=== PATIENT | female | born 1940 | race Caucasian/White ===

== ENCOUNTER 2021-09-11 13:03 | Outpatient (REF) | payer OTHER, SELFPAY ==
--- NOTE | ~2021-09-11 | US_ITS ---
EXAMINATION: US THYROID CLINICAL INFORMATION: Nontoxic goiter, unspecified. COMPARISON: None TECHNIQUE: Linear transducer grayscale and color Doppler examination with attention to the region of the thyroid. FINDINGS: SIZE: Measurements of the thyroid lobes and nodules are given in sagittal, anteroposterior and transverse dimensions respectively. Right Thyroid Lobe: 3.7 x 1.3 x 1.4 cm, volume 3.5 mL. Parenchyma: The gland echotexture is heterogeneous. Thyroid vascularity is increased. Left Thyroid Lobe: 3.8 x 1.5 x 1.5 cm, volume 4.5 mL. Parenchyma: The gland echotexture is heterogeneous. Thyroid vascularity is increased. Isthmus: 0.15 cm in maximum AP dimension. Estimated total number of nodules greater than or equal to 1 cm: 4. Note Specialist nodules are described as follows: 1. Location: Upper right. Size: 1.5 x 0.7 x 1.1 cm, volume 0.64 mL. Nodule characteristics: Composition: Solid (2). Echogenicity: Hypoechoic (2). Shape: Not taller than wide (0). Margins: Irregular (2). Echogenic Foci: None (0). ACR TI-RADS total points: 6 ACR TI-RADS category: 4 2. Location: Lower pole right. Size: 1.5 x 1.0 x 1.2 cm, volume 1.00 mL. Nodule characteristics: Composition: Solid/almost completely solid (2). Echogenicity: Hyperechoic (1). Shape: Not taller than wide (0). Margins: Irregular (2). Echogenic Foci: None (0). ACR TI-RADS total points: 5 ACR TI-RADS category: 4 3. Location: Upper left. Size: 1.2 x 0.7 x 1.1 cm, volume 0.51 mL. Nodule characteristics: Composition: Solid (2). Echogenicity: Isoechoic (1). Shape: Not taller than wide (0). Margins: Irregular (2). Echogenic Foci: Macrocalcifications (1). ACR TI-RADS total points: 6 ACR TI-RADS category: 4 4. Location: Mid lower left. Size: 1.8 x 1.7 x 1.3 cm, volume 2.02 mL. Nodule characteristics: Composition: Solid/almost completely solid (2). Echogenicity: Isoechoic (1). Shape: Taller than wide (3). Margins: Irregular (2). Echogenic Foci: Punctate echogenic foci (3). ACR TI-RADS total points: 11 ACR TI-RADS category: 5 5. Location: Left lower pole. Size: 0.7 x 0.4 x 0.7 cm, volume 0.10 mL. Nodule characteristics: Composition: Solid/almost completely solid (2). Echogenicity: Hypoechoic (2). Shape: Not taller than wide (0). Margins: Smooth (0). Echogenic Foci: None (0). ACR TI-RADS total points: 4 ACR TI-RADS category: 4 Significant change in size (>/= 20% in 2 dimensions and minimal increase of 2 mm or 50% or greater increase in volume): Change in features: Change in ACR TI-RADS risk category: NODES: There is an enlarged right level 2 lymph node. This measures 2.2 x 0.4 x 1.2 cm in sagittal AP and transverse dimension. The mastoid normal hilar flow. US/US thyroid IMPRESSION: Heterogeneous hypervascular thyroid gland with multiple bilateral thyroid nodules. According to TI RADS criteria, fine needle aspiration of the nodule in the mid /lower left lobe and right upper lobe and continued ultrasound follow-up recommended. Enlarged right level 2 cervical lymph node. ACR TI-RADS RECOMMENDATION REFERENCE: Ultrasound-guided fine-needle aspiration, followup ultrasound, no further follow up. * TR1 (0 point) and TR 2 (2 points): No FNA or follow up * TR3 (3 points): FNA if more than or equal to 2.5 cm in maximum dimension, followup ultrasound in 1, 3 and 5 years if 1.5 to 2.4 cm in maximum dimension. * TR4 (4-6 points): FNA if more than or equal to 1.5 cm in maximum dimension, followup ultrasound in 1, 2, 3 and 5 years if 1 to 1.4 cm in maximum dimension. * TR5 (more than or equal to 7 points): FNA if more than or equal to 1 cm in maximum dimension, followup ultrasound every year for 5 years if 0.5 to 0.9 cm in maximum dimension. * TR3, TR4 or TR5 nodules that are below the size threshold for follow up receive no follow up.
== END 2021-09-11 13:04 | disposition home or self-care (01) ==
LOC: HO.HMGCX 13:03
PROVIDERS: PCP Internal Medicine; Visit Provider Internal Medicine
DX: E04.9 Nontoxic goiter, unspecified (principal)
CPT/HCPCS: 76536

== ENCOUNTER 2021-11-08 10:49 | Outpatient (REF) | payer OTHER, SELFPAY ==
[2021-11-08 15:33] LABS: Appearance Urine HAZY; Color Urine YELLOW; Glucose Urine UA NEG (NEG); Leukocyte Esterase Urine TRACE (NEG); Nitrite Urine NEG (NEG); PH 5.5 (5.0-8.0); Specific Gravity - Urine 1.025 (1.005-1.025); Urine Blood TRACE (NEG); Urine Ketones NEG (NEG); Urine Protein NEG (NEG-TRACE)
[2021-11-08 15:43] LABS: Alanine Aminotransferase 15 U/L (0-31); Albumin Level 4.2 g/dL (3.5-5.0); Alkaline Phosphatase 48 U/L (39-117); Anion Gap 10 (12-20); Aspartate Amino Transferase 18 U/L (5-31); Bilirubin Total 0.6 mg/dL (0.0-1.0); Blood Urea Nitrogen 19 mg/dL (9-16); Calcium 9.3 mg/dL (8.4-10.2); Carbon Dioxide 28 mmol/L (22-29); Chloride 105 mmol/L (96-108); Cholesterol 199 mg/dL; Estimated Glomerular Filt Rate 60; Glucose Fasting 118 mg/dL (60-99); HDL Cholesterol 37 mg/dL; LDL Cholesterol Calculated 133 mg/dl; Sodium 139 mmol/L (135-145); Total Protein 6.8 g/dL (6.5-8.0); Triglycerides 146 mg/dL
[2021-11-08 15:48] LABS: Estimated Average Glucose 108 mg/dL; Hemoglobin A1c % 5.4 %
[2021-11-08 15:58] LABS: Creatinine Urine 99.03 mg/dL
[2021-11-08 15:59] LABS: Bacteria Urine 3+ /LPF; RBC Urine 0-2 /HPF (0); Squamous Epithelial Cell Urine 2+ /LPF
[2021-11-08 16:05] LABS: TSH reflex Free T4 2.06 uIU/mL (0.32-4.0)
== END 2021-11-08 10:50 | disposition home or self-care (01) ==
LOC: HO.HMGCLDS 10:49
PROVIDERS: PCP Internal Medicine; Visit Provider Internal Medicine
DX: E04.1 Nontoxic single thyroid nodule (principal); E04.9 Nontoxic goiter, unspecified; E11.9 Type 2 diabetes mellitus without complications; I10 Essential (primary) hypertension
CPT/HCPCS: 36415; 80053; 80061; 81001; 82043; 83036; 84443

== ENCOUNTER 2022-10-09 14:57 | Outpatient (REF) | payer OTHER, SELFPAY ==
[2022-10-09 16:42] LABS: MANUAL DIFF FLAG NO
[2022-10-09 17:33] LABS: Basophils Percent Auto 0.6 % (0-2); Eosinophils Absolute Auto 0.3 X10*3/uL (0.0-0.4); Eosinophils Percent Auto 4.3 % (0-4); Hematocrit 42.1 % (37.0-47.0); Hemoglobin 14.1 g/dl (12.0-16.0); Imm Gran Abs Auto 0.03 X10*3/uL (0.00-0.03); Imm Gran Pct Auto 0.5 % (0.0-0.4); Lymphocytes Absolute Auto 1.8 X10*3/uL (1.2-4.9); Lymphocytes Percent Auto 27.9 % (20-40); Mean Corpuscular HGB Conc 33.5 g/dl (31.0-35.0); Mean Corpuscular Hemoglobin 29.6 pg (27.0-33.0); Mean Corpuscular Volume 88.4 fL (80.0-98.0); Mean Platelet Volume 10.8 fL (9.4-12.3); Monocytes Absolute Auto 0.6 X10*3/uL (0.1-1.2); Monocytes Percent Auto 9.1 % (2-11); Neutrophils Absolute Auto 3.8 x10*3/uL (2.0-8.3); Neutrophils Percent Auto 57.6 % (45-73); Platelet Count 242 X10*3/uL (160-400); Red Blood Count 4.76 X10*6/uL (4.20-5.50); Red Cell Distribution Width 12.6 % (11.0-16.0); White Blood Count 6.6 X10*3/uL (4.8-10.8)
[2022-10-09 17:41] LABS: Estimated Average Glucose 108 mg/dL; Hemoglobin A1c % 5.4 %
[2022-10-09 17:55] LABS: Alanine Aminotransferase 12 U/L (0-31); Albumin Level 4.3 g/dL (3.5-5.0); Alkaline Phosphatase 49 U/L (39-117); Anion Gap 11 (12-20); Aspartate Amino Transferase 18 U/L (5-31); Bilirubin Total 0.5 mg/dL (0.0-1.0); Blood Urea Nitrogen 21 mg/dL (9-16); Calcium 9.6 mg/dL (8.4-10.2); Carbon Dioxide 29 mmol/L (22-29); Chloride 104 mmol/L (96-108); Estimated Glomerular Filt Rate > 60; Glucose Random 108 mg/dL (60-115); Potassium 4.2 mmol/L (3.3-5.1); Sodium 140 mmol/L (135-145); Total Protein 6.8 g/dL (6.5-8.0)
[2022-10-09 18:21] LABS: Folate 18.2 ng/mL (> or = 4.0); TSH reflex Free T4 1.73 uIU/mL (0.32-4.0); Vitamin B12 666 pg/mL (200-900)
== END 2022-10-09 14:58 | disposition home or self-care (01) ==
LOC: HO.HMGCLDS 14:57
PROVIDERS: PCP Internal Medicine; Visit Provider Internal Medicine
DX: E11.9 Type 2 diabetes mellitus without complications (principal); I10 Essential (primary) hypertension; R20.2 Paresthesia of skin
CPT/HCPCS: 36415; 80053; 82607; 82746; 83036; 84443; 85025

== ENCOUNTER 2022-10-24 13:55 | Outpatient (REF) | payer OTHER, SELFPAY ==
--- NOTE | ~2022-10-24 | US_ITS ---
EXAMINATION: US THYROID CLINICAL INFORMATION: Nontoxic single thyroid nodule. COMPARISON: Ultrasound soft tissue head/neck thyroid dated 09/11/2021. TECHNIQUE: Linear transducer grayscale and color Doppler examination with attention to the region of the thyroid. FINDINGS: SIZE: Measurements of the thyroid lobes and nodules are given in sagittal, anteroposterior and transverse dimensions respectively. Right Thyroid Lobe: 3.5 x 1.5 x 1.3 cm, volume 3.6 mL. Previously 3.7 x 1.3 x 1.4 cm, volume 3.5 mL. Parenchyma: The gland echotexture is heterogeneous. Thyroid vascularity is increased. Left Thyroid Lobe: 3.3 x 1.5 x 1.7 cm, volume 4.4 mL. Previously 3.8 x 1.5 x 1.5 cm, volume 4.5 mL. Parenchyma: The gland echotexture is heterogeneous. Thyroid vascularity is increased. Isthmus: 0.1 cm in maximum AP dimension. Previously 0.2 cm. Estimated total number of nodules greater than or equal to 1 cm: 4. 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 Location: Right superior. Size: 1.4 x 0.8 x 0.9 cm, volume 0.56 mL. Previously: 1.5 x 0.7 x 1.1 cm, volume 0.64 mL. Nodule characteristics: Composition: Solid (2). Echogenicity: Hypoechoic (2). Shape: Not taller than wide (0). Margins: Irregular (2). Echogenic Foci: None (0). ACR TI-RADS total points: 6 Previous: 6 ACR TI-RADS category: 4 Previous: 4 Significant change in size (>/= 20% in 2 dimensions and minimal increase of 2 mm or 50% or greater increase in volume): Change in features: Change in ACR TI-RADS risk category: 2. Location: Right inferior. Size: 1.5 x 1.1 x 1.1 cm, volume 0.93 mL. Previously: 1.5 x 1.0 x 1.2 cm, volume 1.00 mL. Nodule characteristics: Composition: Solid/almost completely solid (2). Echogenicity: Hyperechoic (1). Shape: Not taller than wide (0). Margins: Irregular (2). Echogenic Foci: None (0). ACR TI-RADS total points: 5 Previous: 5 ACR TI-RADS category: 4 Previous: 4 Significant change in size (>/= 20% in 2 dimensions and minimal increase of 2 mm or 50% or greater increase in volume): Change in features: Change in ACR TI-RADS risk category: 3. Location: Left superior. Size: 1.2 x 0.6 x 0.9 cm, volume 0.35 mL. Previously: 1.2 x 0.7 x 1.1 cm, volume 0.51 mL. Nodule characteristics: Composition: Solid (2). Echogenicity: Isoechoic (1). Shape: Not taller than wide (0). Margins: Irregular (2). Echogenic Foci: Macrocalcifications (1). ACR TI-RADS total points: 6 Previous: 6 ACR TI-RADS category: 4 Previous: 4 Significant change in size (>/= 20% in 2 dimensions and minimal increase of 2 mm or 50% or greater increase in volume): Change in features: Change in ACR TI-RADS risk category: 4. Location: Left mid. Size: 1.7 x 1.6 x 1.3 cm, volume 1.79 mL. Previously: 1.8 x 1.7 x 1.3 cm, volume 2.02 mL. Nodule characteristics: Composition: Mixed cystic and solid (1). Echogenicity: Hypoechoic (2). Shape: Taller than wide (3). Margins: Irregular (2). Echogenic Foci: Punctate echogenic foci (3). ACR TI-RADS total points: 11 Previous: 11 ACR TI-RADS category: 5 Previous: 5 Significant change in size (>/= 20% in 2 dimensions and minimal increase of 2 mm or 50% or greater increase in volume): Change in features: Change in ACR TI-RADS risk category: 5. Location: Left superior/mid. Size: 0.9 x 0.7 x 0.6 cm, volume 0.22 mL. Previously: 0.7 x 0.4 x 0.7 cm, volume 0.10 mL. Nodule characteristics: Composition: Solid (2). Echogenicity: Isoechoic (1). Shape: Taller than wide (3). Margins: Smooth (0). Echogenic Foci: None (0). ACR TI-RADS total points: 6 Previous: 4 ACR TI-RADS category: 4 Previous: 4 Significant change in size (>/= 20% in 2 dimensions and minimal increase of 2 mm or 50% or greater increase in volume): Change in features: Change in ACR TI-RADS risk category: NODES: No lymphadenopathy is seen in the tissue surrounding the thyroid gland. US/US thyroid IMPRESSION: Multiple bilateral nodules are overall similar. Once again biopsy for the right upper pole and left lower pole nodule again is recommended. Continue surveillance imaging for the other nodules is indicated. ACR TI-RADS RECOMMENDATION REFERENCE: Ultrasound-guided fine-needle aspiration, followup ultrasound, no further follow up. * TR1 (0 point) and TR2 (2 points): No FNA or follow up * TR3 (3 points): FNA if more than or equal to 2.5 cm in maximum dimension, followup ultrasound in 1, 3 and 5 years if 1.5 to 2.4 cm in maximum dimension. * TR4 (4-6 points): FNA if more than or equal to 1.5 cm in maximum dimension, followup ultrasound in 1, 2, 3 and 5 years if 1 to 1.4 cm in maximum dimension. * TR5 (more than or equal to 7 points): FNA if more than or equal to 1 cm in maximum dimension, followup ultrasound every year for 5 years if 0.5 to 0.9 cm in maximum dimension. * TR3, TR4 or TR5 nodules that are below the size threshold for follow up receive no follow up.
== END 2022-10-24 13:56 | disposition home or self-care (01) ==
LOC: HO.HMGCX 13:55
PROVIDERS: PCP Internal Medicine; Visit Provider Internal Medicine
DX: E04.1 Nontoxic single thyroid nodule (principal)
CPT/HCPCS: 76536

== ENCOUNTER 2023-05-14 12:50 | Outpatient (AMB) | payer OTHER, SELFPAY ==
[2023-05-14 12:53] VITALS: BP 120/62; PULSE 80; O2SAT 98; BMI 23.8
--- NOTE | 2023-05-14 12:53 | A.OFFPC_ITS ---
Vital Signs 05/14/23 12:53 Height 4 ft 11 in Weight 118 lb BMI 23.8 BP 120/62 Blood Pressure Location Rt brachial Position Sitting Pulse 80 Pulse Source Pulse Oximeter Pulse Oximetry (%) 98 Intake Visit Reasons: Med review Intake Note: pt is here for f/u medication review Accompanied by: Self / Same As Patient Allergies No Known Allergies Allergy (Verified 05/14/23 12:53) Medication List - Last Reconciled 05/14/23 by Cathy Astudillo MD blood sugar diagnostic (FreeStyle Lite Strips) Test blood sugar once a day latanoprost 0.005% 1 drp ophthalmic (eye) BEDTIME levothyroxine 25 mcg PO DAILY lisinopril 2.5 mg PO DAILY unzucsohhanm-kragutms-lmupat 1 tab PO DAILY sertraline 12.5 mg (1/2 x 25 mg) PO DAILY Tobacco use date assessed: 05/14/23 Fall risk assessment: No Falls in past year Last assessed Fall Risk: 05/14/23 Dental Screening Dental Screen Date: 05/14/23 Did you have a dental visit in the last 12 months?: Yes Did you have a dental problem in the last 6 months where you did not have access to dental care?: No Was dental information given to patient?: Patient has dentist HPI Med review HPI Details Pt presents for f/u HTN, hypothyroidism stable on current medications patient has been less physically active feeling general tired complains of both like pain and weakness. She lives with her son who took over most of the house work. Patient denies PND orthopnea palpitations chest pain, change in appetite, weight or bowel habits. [facility]LY [facility] Medical History (Updated 05/14/23 @ 13:38 by Cathy Astudillo MD) Thyroid nodule Anxiety Varicose veins of both lower extremities DM type 2 (diabetes mellitus, type 2) Goiter HTN (hypertension) Family History Father No problems noted. Mother Diabetes Stroke Heart attack Brother Substance use disorder Social History Housing: House Patient Tobacco Use Status: Never used Tobacco e-Cigarette/Vaping Use: Never Used Current occupational status: retired Cognitive needs: No Hearing needs: No Vision needs: No Questionnaire Thrive Questionnaire Date Thrive assessed: 05/14/23 I am a: Patient What is your living situation today?: I have a steady place to live Within the past 12 months, did the food you bought not last and you didn't have the money to get more?: Never true Within the past 12 months, did you worry whether your food would run out before you got money to buy more?: Never true Do you have trouble paying for medicines?: No Do you have trouble getting transportation to medical appointments?: No Do you have trouble paying your heating and electricity bill?: No Do you have trouble taking care of your child, family member or friend?: No Do you have trouble with day-to-day activities such as bathing, preparing meals, shopping, managing finances, etc.?: No Are you currently unemployed and looking for a job?: No Are you interested in more education?: No Please select the resources that you would like help with: None Currently or been in a relationship where the following occur: no concerns reported ABHIJIT-7 AMB Questionnaire ABHIJIT-7 Date ABHIJIT - 7 assessed: 08/22/21 Source: Developed by Drs. Enmanuel Quintanilla, Aminta Apple, Dada Gillespie and colleagues, with an educational shelby from [employer]. Review of Systems Const All systems reviewed & are unremarkable except as noted in HPI and below Reports no additional complaints Eyes Reports no additional complaints ENT Reports no additional complaints Card Reports no additional complaints Resp Reports no additional complaints GI Reports no additional complaints Reports no additional complaints Physical exam (Primary Care) Vital Signs: Last Vital Signs Pulse 80 05/14/23 12:53 BP 120/62 05/14/23 12:53 Pulse Ox 98 05/14/23 12:53 BMI result Body Mass Index 23.8 Tobacco/Smoking Status: Tobacco use Status Tobacco use date assessed 05/14/23 05/14/23 12:54 Patient Tobacco Use Status Never used Tobacco 05/14/23 12:54 e-Cigarette/Vaping Use Never Used 05/14/23 12:54 Thrive Assessment: Date of Thrive Assessment Date Thrive assessed 05/14/23 05/14/23 12:59 Currently or been in a relationship where the following occur: no concerns reported Const General: no acute distress HENMT Head: Yes normal to inspection Face and sinus: Yes normal facial exam Neck Neck: Yes supple Resp Effort & Inspection: normal respiratory effort Auscultation: clear to auscultation bilaterally Cardio Rhythm: regular rhythm Heart sounds: S1 normal heart sound present and S2 normal heart sound present GI Inspection: Yes normal to inspection Palpation (GI): Soft to palpation Assessment and Plan Assessment & Plan (1) Anxiety: Code(s): F41.9 - Anxiety disorder, unspecified Plan: Stress management discussed with the patient she declined taking sertraline (2) HTN (hypertension): Code(s): I10 - Essential (primary) hypertension Plan: Continue lisinopril (3) DM type 2 (diabetes mellitus, type 2): Comment: diet controlled Code(s): E11.9 - Type 2 diabetes mellitus without complications Plan: Continue ADA diet follow-up in 6 months with a fasting labs before including A1c (4) Thyroid nodule: Comment: multiple, US 10/14. referred to Endo but did not go for appointment Code(s): E04.1 - Nontoxic single thyroid nodule Plan: Patient declined referral to endocrinology (5) Hypothyroid: Code(s): E03.9 - Hypothyroidism, unspecified Orders: Orders Comprehensive [place]. Panel Fast 6 Months E03.9 - Hypothyroidism, unspecified, E04.1 - Nontoxic single thyroid nodule, E11.9 - Type 2 diabetes mellitus without complications, I10 - Essential (primary) hypertension TSH reflex Free T4 6 Months E03.9 - Hypothyroidism, unspecified, E04.1 - Nontoxic single thyroid nodule, E11.9 - Type 2 diabetes mellitus without complic ations, I10 - Essential (primary) hypertension Lipid Panel 6 Months E03.9 - Hypothyroidism, unspecified, E04.1 - Nontoxic single thyroid nodule, E11.9 - Type 2 diabetes mellitus without complications, I10 - Essential (primary) hypertension Hemoglobin A1c 6 Months E03.9 - Hypothyroidism, unspecified, E04.1 - Nontoxic single thyroid nodule, E11.9 - Type 2 diabetes mellitus without complications, I10 - Essential (primary) hypertension Complete Blood Count Auto Diff 6 Months E03.9 - Hypothyroidism, unspecified, E04.1 - Nontoxic single thyroid nodule, E11.9 - Type 2 diabetes mellitus without complications, I10 - Essential (primary) hypertension Coding Level of Care Code Est Pt Level 4 (17782) Diagnoses Anxiety F41.9 HTN (hypertension) I10 DM type 2 (diabetes mellitus, type 2) E11.9 Thyroid nodule E04.1 Hypothyroid E03.9
== END 2023-05-14 13:38 | disposition home or self-care (01) ==
PROVIDERS: PCP Internal Medicine; Visit Provider Internal Medicine
DX: F41.9 Anxiety disorder, unspecified (principal); I10 Essential (primary) hypertension; E11.9 Type 2 diabetes mellitus without complications; E04.1 Nontoxic single thyroid nodule; E03.9 Hypothyroidism, unspecified
CPT/HCPCS: 99214

== ENCOUNTER 2023-10-01 13:47 | Outpatient (AMB) | payer OTHER, SELFPAY ==
[2023-10-01 14:06] VITALS: BP 122/68; PULSE 80; O2SAT 97; BMI 23.9
--- NOTE | 2023-10-01 14:06 | MHC.PC.OV ---
Vital Signs 10/01/23 14:06 Height 4 ft 11 in Weight 118 lb 4 oz BMI 23.9 BP 122/68 Blood Pressure Location Lt brachial Position Sitting Pulse 80 Pulse Source Pulse Oximeter Pulse Oximetry (%) 97 Intake Visit Reasons: 6 Month F/U Allergies No Known Allergies Allergy (Verified 10/01/23 14:08) Medication List - Last Reconciled 10/01/23 by Cathy Astudillo MD blood sugar diagnostic (FreeStyle Lite Strips) Test blood sugar once a day latanoprost 0.005% 1 drp ophthalmic (eye) BEDTIME levothyroxine 25 mcg PO DAILY lisinopril 2.5 mg PO DAILY ddtkmjdrimom-ztxtxxut-hzubfe 1 tab PO DAILY sertraline 12.5 mg (1/2 x 25 mg) PO DAILY Tobacco use date assessed: 10/01/23 Fall risk assessment: No Falls in past year Last assessed Fall Risk: 10/01/23 Dental Screening Dental Screen Date: 10/01/23 Did you have a dental visit in the last 12 months?: Yes Did you have a dental problem in the last 6 months where you did not have access to dental care?: No Was dental information given to patient?: Patient has dentist HPI 6 Month F/U HPI Details Patient presents complaining of feeling generally tired having low energy and insomnia. She denies depression and change in appetite. Patient reports dyspnea on exertion but denies PND orthopnea palpitations or chest pain. She complains of night sweats and occasionally increase blood pressure at night up to 150 over 70. ON LICENSE OF [facility] Medical History Thyroid nodule Anxiety Varicose veins of both lower extremities DM type 2 (diabetes mellitus, type 2) Goiter HTN (hypertension) Family History Father No problems noted. Mother Diabetes Stroke Heart attack Brother Substance use disorder Social History Housing: House Patient Tobacco Use Status: Never used Tobacco e-Cigarette/Vaping Use: Never Used service: No Current occupational status: retired Cognitive needs: No Hearing needs: No Vision needs: No Questionnaire PHQ-9 Over the last 2 weeks, how often have you been bothered by any of the following problems? 1. Little interest or pleasure in doing things: not at all 2. Feeling down, depressed, or hopeless: several days 3. Trouble falling or staying asleep, or sleeping too much: not at all 4. Feeling tired or having little energy: nearly every day 5. Poor appetite or overeating: several days 6. Feeling bad about yourself - or that you are a failure or have let yourself or your family down: not at all 7. Trouble concentrating on things, such as reading the newspaper or watching television: not at all 8. Moving or speaking so slowly that other people could have noticed. Or the opposite - being so fidgety or restless that you have been moving around a lot more than usual: not at all 9. Thoughts that you would be better off or of hurting yourself in some way: not at all Total score: 5 Depression Screening Interpretation: Negative Depression Screening Done: Yes Source: Developed by Drs. Enmanuel Quintanilla, Aminta Apple, Dada Gillespie and colleagues, with an educational shelby from [employer]. Thrive Questionnaire Date Thrive assessed: 10/01/23 I am a: Patient What is your living situation today?: I have a steady place to live Within the past 12 months, did the food you bought not last and you didn't have the money to get more?: Never true Within the past 12 months, did you worry whether your food would run out before you got money to buy more?: Never true Do you have trouble paying for medicines?: No Do you have trouble getting transportation to medical appointments?: No Do you have trouble paying your heating and electricity bill?: No Do you have trouble taking care of your child, family member or friend?: No Do you have trouble with day-to-day activities such as bathing, preparing meals, shopping, managing finances, etc.?: No Are you currently unemployed and looking for a job?: No Are you interested in more education?: No Please select the resources that you would like help with: None THRIVE Score: 0 AUDIT C Alcohol Use Questionnaire (AUDIT-C) 1. How often do you have a drink containing alcohol?: Never 3. How often do you have six or more drinks on one occasion?: Never Total Score: 0 Score Reviewed/Action Taken: Yes ABHIJIT-7 AMB Questionnaire ABHIJIT-7 Date ABHIJIT - 7 assessed: 10/01/23 Feeling nervous, anxious, or on edge: 0 = Not at all Not being able to stop or control worryin = Not at all Worrying too much about different things: 0 = Not at all Trouble relaxin = Not at all Being so restless that it is hard to sit still: 0 = Not at all Becoming easily annoyed or irritable: 0 = Not at all Feeling afraid as if something awful might happen: 0 = Not at all Total ABHIJIT-7 score (0-4 normal; 5-9 mild; 10-14 moderate; 15-21 severe): 0 Source: Developed by Drs. Enmanuel Quintanilla, Aminta Apple, Dada Gillespie and colleagues, with an educational shelby from [employer]. Review of Systems Const All systems reviewed & are unremarkable except as noted in HPI and below Reports no additional complaints Eyes Reports no additional complaints ENT Reports no additional complaints Card Reports no additional complaints Resp Reports no additional complaints GI Reports no additional complaints Reports no additional complaints Physical exam (Primary Care) Vital Signs: Last Vital Signs Pulse 80 10/01/23 14:06 BP 122/68 10/01/23 14:06 Pulse Ox 97 10/01/23 14:06 BMI result Body Mass Index 23.9 Tobacco/Smoking Status: Tobacco use Status Tobacco use date assessed 10/01/23 10/01/23 14:11 Patient Tobacco Use Status Never used Tobacco 10/01/23 14:11 e-Cigarette/Vaping Use Never Used 10/01/23 14:11 Depression Screening Interpretation: Negative Thrive Assessment: Date of Thrive Assessment Date Thrive assessed 05/14/23 10/01/23 14:11 Const General: no acute distress HENMT Head: Yes normal to inspection General nose exam: Normal external nose present Face and sinus: Yes normal facial exam Throat: Yes posterior oropharynx normal Neck Neck: Yes supple Resp Effort & Inspection: normal respiratory effort Auscultation: clear to auscultation bilaterally Cardio Rhythm: regular rhythm Heart sounds: S1 normal heart sound present and S2 normal heart sound present GI Inspection: Yes normal to inspection Palpation (GI): Soft to palpation Percussion: Yes normal to percussion Auscultation: normal bowel sounds Assessment and Plan Assessment & Plan (1) HTN (hypertension): Code(s): I10 - Essential (primary) hypertension Plan: Continue Lisinopril (2) DM type 2 (diabetes mellitus, type 2): Comment: diet controlled Code(s): E11.9 - Type 2 diabetes mellitus without complications Plan: Continue ADA diet, check A1c (3) Hypothyroid: Comment: Multiple goiter, patient declined referral to [employer] service technician for biopsy of a large nodule Code(s): E03.9 - Hypothyroidism, unspecified Plan: Check TSH level (4) Cough: Comment: Chronic possible to SAM inhibitor but patient declined changing the medication Code(s): R05.9 - Cough, unspecified Plan: Check chest x-ray (5) Fatigue: Code(s): R53.83 - Other fatigue Plan: For general fatigue obtain blood work including CBC comprehensive panel and CRP level. EKG showed normal sinus rhythm no ST-T changes. (6) ALVARADO (dyspnea on exertion): Code(s): R06.09 - Other forms of dyspnea Plan: Obtain echocardiogram to evaluate for EF, segmental wall motion abnormalities Orders: Orders Comprehensive Met. Panel Today E03.9 - Hypothyroidism, unspecified, E11.9 - Type 2 diabetes mellitus without complications, I10 - Essential (primary) hypertension TSH reflex Free T4 Today E03.9 - Hypothyroidism, unspecified, E11.9 - Type 2 diabetes mellitus without complications, I10 - Essential (primary) hypertension Hemoglobin A1c Today E11.9 - Type 2 diabetes mellitus without complications CA echo transthoracic complete Today R06.09 - Other forms of dyspnea, R53.83 - Other fatigue Complete Blood Count Auto Diff Today E03.9 - Hypothyroidism, unspecified, E11.9 - Type 2 diabetes mellitus without complications, I10 - Essential (primary) hypertension IRON PROFILE Today E03.9 - Hypothyroidism, unspecified, E11.9 - Type 2 diabetes mellitus without complications, I10 - Essential (primary) hypertension XR chest 1V Today R05.9 - Cough, unspecified C Reactive Protein Today R05.9 - Cough, unspecified, R53.83 - Other fatigue Medications: Discontinued sertraline Discontinued Reason: Doctor's Order 12.5 mg (1/2 x 25 mg) PO DAILY 45 tabs 1RF Coding Level of Care Code Est Pt Level 4 (80080) Diagnoses HTN (hypertension) I10 DM type 2 (diabetes mellitus, type 2) E11.9 Hypothyroid E03.9 Cough R05.9 Fatigue R53.83 ALVARADO (dyspnea on exertion) R06.09
== END 2023-10-01 15:02 | disposition home or self-care (01) ==
PROVIDERS: PCP Internal Medicine; Visit Provider Internal Medicine
DX: I10 Essential (primary) hypertension (principal); E11.9 Type 2 diabetes mellitus without complications; E03.9 Hypothyroidism, unspecified; R05.9 Cough, unspecified; R53.83 Other fatigue; R06.09 Other forms of dyspnea
CPT/HCPCS: 99214

== ENCOUNTER 2023-10-01 14:55 | Outpatient (REF) | payer OTHER, SELFPAY ==
--- NOTE | ~2023-10-01 | XR_ITS ---
EXAMINATION: XR CHEST CLINICAL INFORMATION: Cough unspecified. COMPARISON: None available. TECHNIQUE: Frontal view of the chest was obtained. FINDINGS: The lungs are well-inflated. Mild biapical pleural thickening. There is no gross pneumothorax. Heart size is normal. Mild dextroscoliosis of the thoracolumbar spine with degenerative changes. Surgical clips in the upper abdomen. No pleural effusion. Minimal left basilar opacities likely represent atelectasis/scar. XR/XR chest 1V IMPRESSION: Minimal left basilar opacities likely represent atelectasis/scar.
[2023-10-01 16:15] LABS: MANUAL DIFF FLAG NO
[2023-10-01 16:24] LABS: Basophils Percent Auto 0.7 % (0-2); Eosinophils Absolute Auto 0.2 X10*3/uL (0.0-0.4); Eosinophils Percent Auto 3.5 % (0-4); Hemoglobin 14.4 g/dl (12.0-16.0); Imm Gran Abs Auto 0.02 X10*3/uL (0.00-0.03); Imm Gran Pct Auto 0.3 % (0.0-0.4); Lymphocytes Percent Auto 32.3 % (20-40); Mean Corpuscular HGB Conc 33.5 g/dl (31.0-35.0); Mean Corpuscular Hemoglobin 29.3 pg (27.0-33.0); Mean Corpuscular Volume 87.4 fL (80.0-98.0); Mean Platelet Volume 10.6 fL (9.4-12.3); Monocytes Absolute Auto 0.5 X10*3/uL (0.1-1.2); Monocytes Percent Auto 8.2 % (2-11); Neutrophils Absolute Auto 3.3 x10*3/uL (2.0-8.3); Platelet Count 252 X10*3/uL (160-400); Red Blood Count 4.92 X10*6/uL (4.20-5.50); Red Cell Distribution Width 12.6 % (11.0-16.0); White Blood Count 6.1 X10*3/uL (4.8-10.8)
[2023-10-01 16:29] LABS: Estimated Average Glucose 111 mg/dL; Hemoglobin A1c % 5.5 % (<6.0)
[2023-10-01 18:45] LABS: Alanine Aminotransferase 12 U/L (0-31); Albumin Level 4.2 g/dL (3.5-5.0); Alkaline Phosphatase 44 U/L (39-117); Anion Gap 13 (12-20); Aspartate Amino Transferase 17 U/L (5-31); Bilirubin Total 0.4 mg/dL (0.0-1.0); Blood Urea Nitrogen 16 mg/dL (9-16); C Reactive Protein < 0.10 mg/dL (< or = 0.50); Calcium 9.5 mg/dL (8.4-10.2); Carbon Dioxide 26 mmol/L (22-29); Chloride 105 mmol/L (96-108); Estimated Glomerular Filt Rate > 60; Glucose Random 80 mg/dL (60-115); Iron 58 mcg/dL (30-160); Percent Iron Saturation 21 % (15-50); Potassium 3.9 mmol/L (3.3-5.1); Sodium 140 mmol/L (135-145); Total Iron Binding Capacity 278 mcg/dL (228-428); Total Protein 7.1 g/dL (6.5-8.0); Unsaturated Iron Binding 220 ug/dL
[2023-10-01 18:54] LABS: TSH reflex Free T4 2.27 uIU/mL (0.32-4.0)
== END 2023-10-01 14:56 | disposition home or self-care (01) ==
LOC: HO.HMGCX 14:55
PROVIDERS: PCP Internal Medicine; Visit Provider Internal Medicine
DX: E11.9 Type 2 diabetes mellitus without complications (principal); R05.9 Cough, unspecified; I10 Essential (primary) hypertension; E03.9 Hypothyroidism, unspecified; R53.83 Other fatigue
CPT/HCPCS: 36415; 71045; 80053; 83036; 83540; 84443; 85025; 86140

== ENCOUNTER 2024-03-31 13:46 | Outpatient (REF) | payer OTHER, SELFPAY ==
--- NOTE | ~2024-03-31 | XR_ITS ---
EXAMINATION: XR KNEE, LEFT CLINICAL INFORMATION: Left knee pain COMPARISON: None available. TECHNIQUE: Four views of the left knee. FINDINGS: Tricompartmental osteoarthritis, moderate in the medial compartment. No joint effusion. No acute fractures or dislocations. Soft tissue structures within normal limits. XR/XR knee LT 2V IMPRESSION: Tricompartmental osteoarthritis, worst within the medial compartment. Electronically signed by: Neptali Walker DO 04/01/2024 09:39 AM MAHNA[facility]
--- NOTE | ~2024-03-31 | XR_ITS ---
EXAMINATION: XR KNEE AP STANDING CLINICAL INFORMATION: Pain in the right knee COMPARISON: None available. TECHNIQUE: AP bilateral standing view of the knees was obtained. FINDINGS: Single AP view of bilateral knees demonstrate at least bicompartmental osteoarthritis. On the right, there is moderate medial compartment osteoarthritis. On the left, there is moderate to severe medial compartmental osteoarthritis. No acute fractures or dislocations. XR/XR knee standing BI IMPRESSION: Predominantly medial compartmental bilateral osteoarthritis. Electronically signed by: Neptali Walker DO 04/01/2024 09:56 AM MAHNAZ
== END 2024-03-31 13:47 | disposition home or self-care (01) ==
LOC: HO.HMGCX 13:46
PROVIDERS: PCP Internal Medicine; Visit Provider Internal Medicine
DX: M25.561 Pain in right knee (principal); M25.562 Pain in left knee; E03.9 Hypothyroidism, unspecified; I10 Essential (primary) hypertension
CPT/HCPCS: 73560; 73565; 96127; 99212

== ENCOUNTER 2024-03-31 13:46 | Outpatient (AMB) | payer OTHER, SELFPAY ==
--- NOTE | 2024-03-31 13:49 | A.OFFPC_ITS ---
Vital Signs 03/31/24 13:51 Height 4 ft 11 in Weight 122 lb BMI 24.6 BP 130/78 Blood Pressure Location Lt brachial Position Sitting Pulse 88 Pulse Source Pulse Oximeter Pulse Oximetry (%) 97 Oxygen Delivery Method Room Air Intake Visit Reasons: 6MofollowUp Allergies No Known Allergies Allergy (Verified 03/31/24 13:53) Medication List - Last Reconciled 03/31/24 by Cathy Astudillo MD blood sugar diagnostic (FreeStyle Lite Strips) Test blood sugar once a day latanoprost 0.005% 1 drp ophthalmic (eye) BEDTIME levothyroxine 25 mcg PO DAILY lisinopril 2.5 mg PO DAILY ybhtbvohosdl-vnrwxxaa-dgcocv 1 tab PO DAILY Tobacco use date assessed: 03/31/24 Fall risk assessment: No Falls in past year Last assessed Fall Risk: 03/31/24 Dental Screening Dental Screen Date: 03/31/24 Did you have a dental visit in the last 12 months?: Yes Did you have a dental problem in the last 6 months where you did not have access to dental care?: No Was dental information given to patient?: Patient has dentist HPI 6MofollowUp HPI Details Pt presents for f/u HTN and hypothyroid stable on meds. Pt c/o bilateral knee pain and stiffness left worse than right getting worse over the last few months. Patient had cortisone injections in the past many years ago without significant improvement. [facility] Medical History Thyroid nodule Anxiety Varicose veins of both lower extremities DM type 2 (diabetes mellitus, type 2) Goiter HTN (hypertension) Family History Father No problems noted. Mother Diabetes Stroke Heart attack Brother Substance use disorder Social History Housing: House Patient Tobacco Use Status: Never used Tobacco e-Cigarette/Vaping Use: Never Used service: No Current occupational status: retired Cognitive needs: No Hearing needs: No Vision needs: No Questionnaire PHQ-9 Over the last 2 weeks, how often have you been bothered by any of the following problems? 1. Little interest or pleasure in doing things: not at all 2. Feeling down, depressed, or hopeless: not at all 3. Trouble falling or staying asleep, or sleeping too much: nearly every day 4. Feeling tired or having little energy: several days 5. Poor appetite or overeating: not at all 6. Feeling bad about yourself - or that you are a failure or have let yourself or your family down: not at all 7. Trouble concentrating on things, such as reading the newspaper or watching television: several days 8. Moving or speaking so slowly that other people could have noticed. Or the opposite - being so fidgety or restless that you have been moving around a lot more than usual: not at all 9. Thoughts that you would be better off or of hurting yourself in some way: not at all Total score: 5 Depression Screening Interpretation: Negative Depression Screening Done: Yes 54917 - PHQ-9 Billing: Yes Source: Developed by Drs. Enmanuel Quintanilla, Aminta Apple, Dada Gillespie and colleagues, with an educational shelby from [employer]. Thrive Questionnaire Date Thrive assessed: 03/31/24 I am a: Patient What is your living situation today?: I have a steady place to live Within the past 12 months, did the food you bought not last and you didn't have the money to get more?: Never true Within the past 12 months, did you worry whether your food would run out before you got money to buy more?: Never true Do you have trouble paying for medicines?: No Do you have trouble getting transportation to medical appointments?: No Do you have trouble paying your heating and electricity bill?: No Do you have trouble taking care of your child, family member or friend?: I choose not to answer this question Do you have trouble with day-to-day activities such as bathing, preparing meals, shopping, managing finances, etc.?: Yes Are you currently unemployed and looking for a job?: I choose not to answer this question Are you interested in more education?: I choose not to answer this question Please select the resources that you would like help with: None Currently or been in a relationship where the following occur: I choose not to answer THRIVE Score: 0 AUDIT C Alcohol Use Questionnaire (AUDIT-C) 1. How often do you have a drink containing alcohol?: Never 3. How often do you have six or more drinks on one occasion?: Never Total Score: 0 Score Reviewed/Action Taken: Yes ABHIJIT-7 AMB Questionnaire ABHIJIT-7 Date ABHIJIT - 7 assessed: 03/31/24 Feeling nervous, anxious, or on edge: 1 = Several days Not being able to stop or control worryin = Not at all Worrying too much about different things: 1 = Several days Trouble relaxin = Several days Being so restless that it is hard to sit still: 0 = Not at all Becoming easily annoyed or irritable: 1 = Several days Feeling afraid as if something awful might happen: 0 = Not at all Total ABHIJIT-7 score (0-4 normal; 5-9 mild; 10-14 moderate; 15-21 severe): 4 Source: Developed by Drs. Enmanuel Quintanilla, Aminta Apple, Dada Gillespie and colleagues, with an educational shelby from [employer]. ABHIJIT-7 Assessment Billing ABHIJIT-7 Assessment Tool: ABHIJIT-7 Assessment 95034 Review of Systems Const All systems reviewed & are unremarkable except as noted in HPI and below Card Reports no additional complaints Resp Reports no additional complaints GI Reports no additional complaints Reports no additional complaints Physical exam (Primary Care) Vital Signs: Last Vital Signs Pulse 88 03/31/24 13:51 BP 130/78 03/31/24 13:51 Pulse Ox 97 03/31/24 13:51 Oxygen Delivery Method Room Air 03/31/24 13:51 BMI result Body Mass Index 24.6 Tobacco/Smoking Status: Tobacco use Status Tobacco use date assessed 03/31/24 03/31/24 13:54 Patient Tobacco Use Status Never used Tobacco 03/31/24 13:50 e-Cigarette/Vaping Use Never Used 03/31/24 13:50 PHQ-9: PHQ-9 Score PHQ-9: Total score 5 03/31/24 14:08 Depression Screening Interpretation: Negative Thrive Assessment: Date of Thrive Assessment Date Thrive assessed 03/31/24 03/31/24 13:54 Currently or been in a relationship where the following occur: I choose not to answer Const General: no acute distress HENMT Face and sinus: Yes normal facial exam Neck Neck: Yes supple Resp Effort & Inspection: normal respiratory effort Auscultation: clear to auscultation bilaterally Cardio Rhythm: regular rhythm Heart sounds: S1 normal heart sound present and S2 normal heart sound present GI Inspection: Yes normal to inspection Palpation (GI): Soft to palpation Extrem Other: Bilateral knees with significant decreased range of motion and crepitus and stiffness no joint swelling erythema or warmth General: Yes no clubbing, cyanosis or edema Coding Level of Care Code Est Pt Level 4 (33445) Diagnoses Hypothyroid E03.9 HTN (hypertension) I10 Bilateral knee pain M25.561; M25.562 Additional Codes ABHIJIT-7 Assessment Billing - ABHIJIT-7 Assessment Tool: ABHIJIT-7 Assessment 62298 ([id number]) PHQ-9 - 73589 - PHQ-9 Billing: Yes ([id number]) Assessment & Plan Assessment & Plan (1) Hypothyroid: Comment: Multiple goiter, patient declined referral to cash management clerk for biopsy of a large nodule Code(s): E03.9 - Hypothyroidism, unspecified Category: Medical Plan: Continue levothyroxine (2) HTN (hypertension): Code(s): I10 - Essential (primary) hypertension Category: Medical Plan: Continue Lisinopril (3) Bilateral knee pain: Code(s): M25.561 - Pain in right knee; M25.562 - Pain in left knee Category: Medical Plan: Check x-rays of both knees a PT was recommended but patient declined , short course of prednisone as prescribed Orders: Orders XR knee LT 2V Today M25.561 - Pain in right knee, M25.562 - Pain in left knee XR knee standing BI Today M25.561 - Pain in right knee, M25.562 - Pain in left knee Medications: New prednisone Four tablets p.o. q.d. for 3 days then 3 tablets p.o. q.d. for 3 days then 2 tablets p.o. q.d. for 3 days then 1 tablet p.o. q.d. for 3 days 10 mg PO DAILY 30 tabs 0RF
[2024-03-31 13:51] VITALS: BP 130/78; PULSE 88; O2SAT 97; BMI 24.6
== END 2024-03-31 14:39 | disposition home or self-care (01) ==
LOC: HO.HMCC 13:47
PROVIDERS: PCP Internal Medicine; Visit Provider Internal Medicine
DX: E03.9 Hypothyroidism, unspecified (principal); I10 Essential (primary) hypertension; M25.561 Pain in right knee; M25.562 Pain in left knee

== ENCOUNTER 2024-07-21 13:26 | Outpatient (AMB) | payer OTHER, SELFPAY ==
[2024-07-21 13:30] VITALS: BP 108/66; PULSE 75; RESP 18; TEMP 37; O2SAT 98; BMI 24.4
--- NOTE | 2024-07-21 13:30 | A.OFFPC_ITS ---
Vital Signs 07/21/24 13:30 Height 4 ft 11 in Weight 121 lb BMI 24.4 BP 108/66 Blood Pressure Location Lt brachial Position Sitting Respiration 18 Pulse 75 Pulse Source Pulse Oximeter Temp 98.6 F Temp Source Oral Pulse Oximetry (%) 98 Oxygen Delivery Method Room Air Intake Visit Reasons: PE Intake Note: Pt is here today for PE. Pt states that she has been having problem with constipation. Allergies No Known Allergies Allergy (Verified 07/21/24 13:30) Medication List - Last Reconciled 07/21/24 by Cathy Astudillo MD blood sugar diagnostic (FreeStyle Lite Strips) Test blood sugar once a day latanoprost 0.005% 1 drp ophthalmic (eye) BEDTIME levothyroxine 25 mcg PO DAILY lisinopril 2.5 mg PO DAILY lhbaiqordkto-lyzwqgfu-capysb 1 tab PO DAILY sertraline 25 mg PO DAILY Tobacco use date assessed: 07/21/24 Last assessed Fall Risk: 07/21/24 Dental Screening Dental Screen Date: 07/21/24 Did you have a dental visit in the last 12 months?: Yes Did you have a dental problem in the last 6 months where you did not have access to dental care?: No Was dental information given to patient?: Patient has dentist HPI PE HPI Details Pt presents for PE. Hypothyroidism hypertension controlled on current medications. Chronic anxiety is stable on sertraline. [facility] Medical History Thyroid nodule Anxiety Varicose veins of both lower extremities DM type 2 (diabetes mellitus, type 2) Goiter HTN (hypertension) Family History Father No problems noted. Mother Diabetes Stroke Heart attack Brother Substance use disorder Social History Housing: House Patient Tobacco Use Status: Never used Tobacco e-Cigarette/Vaping Use: Never Used service: No Current occupational status: retired Cognitive needs: No Hearing needs: No Vision needs: No Questionnaire PHQ-9 Over the last 2 weeks, how often have you been bothered by any of the following problems? 1. Little interest or pleasure in doing things: not at all 2. Feeling down, depressed, or hopeless: not at all 3. Trouble falling or staying asleep, or sleeping too much: several days 4. Feeling tired or having little energy: several days 5. Poor appetite or overeating: not at all 6. Feeling bad about yourself - or that you are a failure or have let yourself or your family down: not at all 7. Trouble concentrating on things, such as reading the newspaper or watching television: not at all 8. Moving or speaking so slowly that other people could have noticed. Or the opposite - being so fidgety or restless that you have been moving around a lot more than usual: not at all 9. Thoughts that you would be better off or of hurting yourself in some way: not at all Total score: 2 Depression Screening Interpretation: Negative Depression Screening Done: Yes 01244 - PHQ-9 Billing: Yes Source: Developed by Drs. Enmanuel Quintanilla, Aminta Apple, Dada Gillespie and colleagues, with an educational shelby from [employer].. Thrive Questionnaire Date Thrive assessed: 07/21/24 I am a: Patient What is your living situation today?: I have a steady place to live Within the past 12 months, did the food you bought not last and you didn't have the money to get more?: Never true Within the past 12 months, did you worry whether your food would run out before you got money to buy more?: Never true Do you have trouble paying for medicines?: No Do you have trouble getting transportation to medical appointments?: No Do you have trouble paying your heating and electricity bill?: No Do you have trouble taking care of your child, family member or friend?: I choose not to answer this question Do you have trouble with day-to-day activities such as bathing, preparing meals, shopping, managing finances, etc.?: Yes Are you currently unemployed and looking for a job?: I choose not to answer this question Are you interested in more education?: I choose not to answer this question Please select the resources that you would like help with: None Currently or been in a relationship where the following occur: I choose not to answer THRIVE Score: 0 AUDIT C Alcohol Use Questionnaire (AUDIT-C) 1. How often do you have a drink containing alcohol?: Never 3. How often do you have six or more drinks on one occasion?: Never Total Score: 0 ABHIJIT-7 AMB Questionnaire ABHIJIT-7 Date ABHIJIT - 7 assessed: 07/21/24 Feeling nervous, anxious, or on edge: 2 = More than half the days Not being able to stop or control worryin = More than half the days Worrying too much about different things: 2 = More than half the days Trouble relaxin = More than half the days Being so restless that it is hard to sit still: 0 = Not at all Becoming easily annoyed or irritable: 2 = More than half the days Feeling afraid as if something awful might happen: 0 = Not at all Total ABHIJIT-7 score (0-4 normal; 5-9 mild; 10-14 moderate; 15-21 severe): 10 Source: Developed by Drs. Enmanuel Quintanilla, Aminta Apple, Dada Gillespie and colleagues, with an educational shelby from [employer].. ABHIJIT-7 Assessment Billing ABHIJIT-7 Assessment Tool: ABHIJIT-7 Assessment 79325 Review of Systems Const All systems reviewed & are unremarkable except as noted in HPI and below Reports no additional complaints Eyes Reports no additional complaints ENT Reports no additional complaints Card Reports no additional complaints Resp Reports no additional complaints GI Reports no additional complaints Reports no additional complaints Physical exam (Primary Care) Vital Signs: Last Vital Signs Temp 98.6 F 07/21/24 13:30 Pulse 75 07/21/24 13:30 Resp 18 07/21/24 13:30 BP 108/66 07/21/24 13:30 Pulse Ox 98 07/21/24 13:30 Oxygen Delivery Method Room Air 07/21/24 13:30 BMI result Body Mass Index 24.4 Tobacco/Smoking Status: Tobacco use Status Tobacco use date assessed 07/21/24 07/21/24 13:37 Patient Tobacco Use Status Never used Tobacco 07/21/24 13:37 e-Cigarette/Vaping Use Never Used 07/21/24 13:37 PHQ-9: PHQ-9 Score PHQ-9: Total score 2 07/21/24 13:37 Depression Screening Interpretation: Negative Thrive Assessment: Date of Thrive Assessment Date Thrive assessed 07/21/24 07/21/24 13:37 Currently or been in a relationship where the following occur: I choose not to answer Const General: no acute distress HENMT Head: Yes normal to inspection Ears: hearing grossly normal bilaterally Face and sinus: Yes normal facial exam Mouth: Normal oral and palatal mucosa present Eyes General: appearance normal, both eyes and all related structures Neck Neck: Yes no lymphadenopathy and Yes supple Resp Effort & Inspection: normal respiratory effort Auscultation: clear to auscultation bilaterally Cardio Rhythm: regular rhythm Heart sounds: S1 normal heart sound present and S2 normal heart sound present GI Inspection: Yes normal to inspection Palpation (GI): Soft to palpation Percussion: Yes normal to percussion Auscultation: normal bowel sounds Coding Level of Care Code Est Pt Prev Care >65y(17623) Diagnoses HTN (hypertension) I10 DM type 2 (diabetes mellitus, type 2) E11.9 Hypothyroid E03.9 Annual physical exam Z00.00 Additional Codes ABHIJIT-7 Assessment Billing - ABHIJIT-7 Assessment Tool: ABHIJIT-7 Assessment 40383 ([id number]) PHQ-9 - 74734 - PHQ-9 Billing: Yes ([id number]) Assessment & Plan Assessment & Plan (1) HTN (hypertension): Code(s): I10 - Essential (primary) hypertension Category: Medical Plan: Continue lisinopril (2) DM type 2 (diabetes mellitus, type 2): Comment: diet controlled Code(s): E11.9 - Type 2 diabetes mellitus without complications Category: Medical Plan: Continue ADA diet check A1c (3) Hypothyroid: Comment: Multiple goiter, patient declined referral to emission technician for biopsy of a large nodule Code(s): E03.9 - Hypothyroidism, unspecified Category: Medical Plan: Continue levothyroxine check TSH level (4) Annual physical exam: Code(s): Z00.00 - Encounter for general adult medical examination without abnormal findings Category: Medical Plan: Well-balanced diet regular physical activity discussed with the patient. Orders: Orders TSH reflex Free T4 Today E03.9 - Hypothyroidism, unspecified, E11.9 - Type 2 diabetes mellitus without complications, I10 - Essential (primary) hypertension Comprehensive Met. Panel Today E03.9 - Hypothyroidism, unspecified, E11.9 - Type 2 diabetes mellitus without complications, I10 - Essential (primary) hypertension Hemoglobin A1c Today E03.9 - Hypothyroidism, unspecified, E11.9 - Type 2 diabetes mellitus without complications, I10 - Essential (primary) hypertension Complete Blood Count Auto Diff Today E03.9 - Hypothyroidism, unspecified, E11.9 - Type 2 diabetes mellitus without complications, I10 - Essential (primary) hypertension Medications: New sertraline 25 mg PO DAILY 90 tabs 3RF docusate sodium (Colace) 100 mg PO BID 180 caps 0RF Refilled lisinopril 2.5 mg PO DAILY 90 tabs 3RF levothyroxine 25 mcg PO DAILY 90 tabs 3RF
--- OUTSIDE RECORDS SUMMARY | 2024-07-21 16:03 | XMS_ITS | Clinical Summary ---
[facility] Organization [facility] Address [id number] [place] [id number] Care Team Providers Care Ship Rigger Name Role Phone Ruiz Kovacs DO Primary Care Provider [phone] Surgical History Surgery Date Site/Laterality Comments CHOLECYSTECTOMY PROCEDURE: HISTORICAL CHOLECYSTECTOMY OTHER SURGICAL HISTORY PROCEDURE: [place] UNLISTED PROCEDURE VASCULAR SURGERY; COMMENT: left leg in past Medical History Medical History Date Comments Hypothyroidism 06/05/2017 DX:Hypothyroidis m Hypertension 06/05/2017 DX:Hypertension Peripheral vascular disease (CMS/HCC) 06/05/2017 DX:Peripheral vascular disease (HCC) Constipation 06/05/2017 DX:Constipation Vitamin D deficiency 06/04/2021 DX:Vitamin D deficiency Family History Medical History Relation Name Comments No Known Problems Brother 1 Hypertension Brother 2 No Known Problems Brother 3 Colon cancer Father Heart attack Mother No Known Problems Son Relation Name Status Comments Brother 1 Alive Brother 2 Alive Brother 3 Alive Brother 4 Alive Daughter Other Father Mother Son Alive Social History Tobacco Use Types Packs/Day Years Used Date Smoking Tobacco: Never Smokeless Tobacco: Never Alcohol Use Standard Drinks/Week Comments No 0 (1 standard drink = 0.6 oz pur e alcohol) Comments Unknown Sex and Gender Information Value Date Recorded Sex Assigned at Not on file Legal Sex Female 9:33 PM EST Gender Identity Not on file Sexual Orientation Not on file Obstetrics History Plan of Treatment Health Maintenance Due Date Last Done Comments DTaP,Tdap,and Td Vaccines (1 - Tdap) 1957 Pneumococcal Vaccine: 50+ Ye ars (1 of 1 - PCV) 1988 Zoster Vaccines (1 of 2) 1988 RSV Immunization Patients 60 + Years Old (1 - 1-dose 75+ series) 2013 Cholesterol Screening (Lipid Panel) 04/26/2022 Depression Screening 04/26/2022 Falls Risk Assessment 04/26/2022 Osteoporosis Screening (Bone Density Screening) 04/26/2022 Social Influencers of Health Screening 04/26/2022 Hypertension/CHF/CAD Annual BMP Blood Test 05/04/2022 COVID-19 Vaccine (2023-2 5 season) 2024 Influenza Vaccine (#1) 2024 HIB Vaccines Aged Out No longer eligi ble based on patient's age to complete this topic HPV Vaccines Aged Out No longer eligi ble based on patient's age to complete this topic Hepatitis A Vaccines Aged Out No long er eligible based on patient's age to complete this topic Hepatitis B Vaccines Aged Out No long er eligible based on patient's age to complete this topic IPV Vaccines Aged Out No longer eligi ble based on patient's age to complete this topic MMR Vaccines Aged Out No longer eligi ble based on patient's age to complete this topic Meningococcal ACWY Vaccine Aged Out N o longer eligible based on patient's age to complete this topic Meningococcal B Vacine Aged Out No lo nger eligible based on patient's age to complete this topic RSV Immunization Patients Un alber 20 months Aged Out No longer eligible b ased on patient's age to complete this topic Varicella Vaccines Aged Out No longer eligible based on patient's age to complete this topic Care Teams Ship Rigger Relationship Specialty Start Date End Date Ruiz Kovacs DO PCP - General Internal Medicine 05/10/21
== END 2024-07-21 14:33 | disposition home or self-care (01) ==
PROVIDERS: PCP Internal Medicine; Visit Provider Internal Medicine
DX: I10 Essential (primary) hypertension (principal); E11.9 Type 2 diabetes mellitus without complications; E03.9 Hypothyroidism, unspecified; Z00.00 Encounter for general adult medical examination without abnormal findings

== ENCOUNTER 2024-07-21 13:26 | Outpatient (REF) | payer OTHER, SELFPAY ==
[2024-07-21 16:10] LABS: MANUAL DIFF FLAG NO
[2024-07-21 16:20] LABS: Basophils Percent Auto 0.4 % (0-2); Eosinophils Absolute Auto 0.2 X10*3/uL (0.0-0.4); Eosinophils Percent Auto 2.9 % (0-4); Hematocrit 43.1 % (37.0-47.0); Hemoglobin 14.6 g/dl (12.0-16.0); Imm Gran Abs Auto 0.02 X10*3/uL (0.00-0.03); Imm Gran Pct Auto 0.3 % (0.0-0.4); Lymphocytes Percent Auto 29.7 % (20-40); Mean Corpuscular HGB Conc 33.9 g/dl (31.0-35.0); Mean Corpuscular Hemoglobin 29.6 pg (27.0-33.0); Mean Corpuscular Volume 87.4 fL (80.0-98.0); Mean Platelet Volume 10.5 fL (9.4-12.3); Monocytes Absolute Auto 0.6 X10*3/uL (0.1-1.2); Monocytes Percent Auto 8.6 % (2-11); Neutrophils Percent Auto 58.1 % (45-73); Platelet Count 277 X10*3/uL (160-400); Red Blood Count 4.93 X10*6/uL (4.20-5.50); Red Cell Distribution Width 12.5 % (11.0-16.0); White Blood Count 6.8 X10*3/uL (4.8-10.8)
[2024-07-21 16:30] LABS: Estimated Average Glucose 111 mg/dL; Hemoglobin A1C 141.8567 umol/L; Hemoglobin A1c % 5.5 % (<6.0); Total Hemoglobin (HGBA1C) 3822.7341 umol/L
--- OUTSIDE RECORDS SUMMARY | 2024-07-21 17:00 | XMS_ITS | Clinical Summary ---
[facility] it Address [address] [place] [id number] Care Team Providers Care Civil Transportation Engineer Name Role Phone Ruiz Kovacs DO Primary Care Provider [phone] Surgical History Surgery Date Site/Laterality Comments CHOLECYSTECTOMY PROCEDURE: HISTORICAL CHOLECYSTECTOMY OTHER SURGICAL HISTORY PROCEDURE: [place] UNLISTED PROCEDURE VASCULAR SURGERY; COMMENT: left leg [...] age to complete this topic Care Teams Civil Transportation Engineer Relationship Specialty Start Date End Date Ruiz Kovacs DO PCP - General Internal Medicine 05/10/21
[2024-07-21 17:01] LABS: Alanine Aminotransferase 10 U/L (0-31); Albumin Level 4.3 g/dL (3.5-5.0); Alkaline Phosphatase 51 U/L (39-117); Anion Gap 9 (12-20); Aspartate Amino Transferase 21 U/L (5-31); Bilirubin Total 0.5 mg/dL (0.0-1.0); Blood Urea Nitrogen 16 mg/dL (9-16); Calcium 9.4 mg/dL (8.4-10.2); Carbon Dioxide 27 mmol/L (22-29); Chloride 107 mmol/L (96-108); Estimated Glomerular Filt Rate > 60; Glucose Random 101 mg/dL (60-115); Sodium 139 mmol/L (135-145); Total Protein 7.5 g/dL (6.5-8.0)
[2024-07-21 17:10] LABS: TSH reflex Free T4 2.17 uIU/mL (0.32-4.0)
== END 2024-07-21 13:27 | disposition home or self-care (01) ==
LOC: HO.HMGCLDS 13:26
PROVIDERS: PCP Internal Medicine; Visit Provider Internal Medicine
DX: Z00.00 Encounter for general adult medical examination without abnormal findings (principal); I10 Essential (primary) hypertension; E11.9 Type 2 diabetes mellitus without complications; E03.9 Hypothyroidism, unspecified; Z79.899 Other long term (current) drug therapy
CPT/HCPCS: 36415; 80053; 83036; 84443; 85025; 96127; 99397

== ENCOUNTER 2024-08-11 11:08 | Outpatient (AMB) | payer OTHER, SELFPAY ==
[2024-08-11 11:16] VITALS: BP 126/68; PULSE 84; RESP 18; TEMP 36.8; O2SAT 96; BMI 24.4
--- NOTE | 2024-08-11 11:16 | A.OFFPC_ITS ---
Vital Signs 08/11/24 11:16 Height 4 ft 11 in Weight 121 lb BMI 24.4 BP 126/68 Blood Pressure Location Lt brachial Position Sitting Respiration 18 Pulse 84 Pulse Source Pulse Oximeter Temp 98.3 F Temp Source Oral Pulse Oximetry (%) 96 Oxygen Delivery Method Room Air Intake Visit Reasons: Stomach Ache Intake Note: Pt is here today for a follow up visit on abdominal pain, diarrhea and lower abdominal pain. Allergies No Known Allergies Allergy (Verified 08/11/24 11:17) Medication List - Last Reconciled 08/11/24 by Cathy Astudillo MD blood sugar diagnostic (FreeStyle Lite Strips) Test blood sugar once a day docusate sodium (Colace) 100 mg PO BID estradiol 0.01%(0.1mg/gram) 1 g vaginal 3XW latanoprost 0.005% 1 drp ophthalmic (eye) BEDTIME levothyroxine 25 mcg PO DAILY lisinopril 2.5 mg PO DAILY meowpukhnyme-itrwcnhx-jqaodn 1 tab PO DAILY sertraline 25 mg PO DAILY Tobacco use date assessed: 08/11/24 Fall risk assessment: No Falls in past year Last assessed Fall Risk: 08/11/24 Dental Screening Dental Screen Date: 08/11/24 HPI Stomach Ache HPI Details Patient presents complaining of pelvic discomfort ,frequent urination sensation of incomplete emptying bladder. She denies dysuria or urinary of fecal incontinence. Patient complains of vaginal dryness but denies vaginal bleeding. Hypertension is controlled on Lisinopril. [facility] Medical History Thyroid nodule Anxiety Varicose veins of both lower extremities DM type 2 (diabetes mellitus, type 2) Goiter HTN (hypertension) Family History Father No problems noted. Mother Diabetes Stroke Heart attack Brother Substance use disorder Social History Housing: House Patient Tobacco Use Status: Never used Tobacco e-Cigarette/Vaping Use: Never Used service: No Current occupational status: retired Cognitive needs: No Hearing needs: No Vision needs: No Questionnaire PHQ-9 Over the last 2 weeks, how often have you been bothered by any of the following problems? 1. Little interest or pleasure in doing things: not at all 2. Feeling down, depressed, or hopeless: not at all 3. Trouble falling or staying asleep, or sleeping too much: several days 4. Feeling tired or having little energy: several days 5. Poor appetite or overeating: not at all 6. Feeling bad about yourself - or that you are a failure or have let yourself or your family down: not at all 7. Trouble concentrating on things, such as reading the newspaper or watching television: not at all 8. Moving or speaking so slowly that other people could have noticed. Or the opposite - being so fidgety or restless that you have been moving around a lot more than usual: not at all 9. Thoughts that you would be better off or of hurting yourself in some way: not at all Total score: 2 Depression Screening Interpretation: Negative Depression Screening Done: Yes 43016 - PHQ-9 Billing: Yes Source: Developed by Drs. Enmanuel Quintanilla, Aminta Apple, Dada Gillespie and colleagues, with an educational shelby from [employer]. Thrive Questionnaire Date Thrive assessed: 08/11/24 I am a: Patient What is your living situation today?: I have a steady place to live Within the past 12 months, did the food you bought not last and you didn't have the money to get more?: Never true Within the past 12 months, did you worry whether your food would run out before you got money to buy more?: Never true Do you have trouble paying for medicines?: No Do you have trouble getting transportation to medical appointments?: No Do you have trouble paying your heating and electricity bill?: No Do you have trouble taking care of your child, family member or friend?: I choose not to answer this question Do you have trouble with day-to-day activities such as bathing, preparing meals, shopping, managing finances, etc.?: Yes Are you currently unemployed and looking for a job?: I choose not to answer this question Are you interested in more education?: I choose not to answer this question Please select the resources that you would like help with: None Currently or been in a relationship where the following occur: I choose not to answer THRIVE Score: 0 ABHIJIT-7 AMB Questionnaire ABHIJIT-7 Date ABHIJIT - 7 assessed: 08/11/24 Feeling nervous, anxious, or on edge: 2 = More than half the days Not being able to stop or control worryin = More than half the days Worrying too much about different things: 2 = More than half the days Trouble relaxin = More than half the days Being so restless that it is hard to sit still: 0 = Not at all Becoming easily annoyed or irritable: 2 = More than half the days Feeling afraid as if something awful might happen: 0 = Not at all Total ABHIJIT-7 score (0-4 normal; 5-9 mild; 10-14 moderate; 15-21 severe): 10 Source: Developed by Drs. Enmanuel Quintanilla, Aminta Apple, Dada Gillespie and colleagues, with an educational shelby from [employer]. ABHIJIT-7 Assessment Billing ABHIJIT-7 Assessment Tool: ABHIJIT-7 Assessment 57868 Review of Systems Const All systems reviewed & are unremarkable except as noted in HPI and below Eyes Reports no additional complaints ENT Reports no additional complaints Card Reports no additional complaints Resp Reports no additional complaints GI Reports no additional complaints Reports no additional complaints Physical exam (Primary Care) Vital Signs: Last Vital Signs Temp 98.3 F 08/11/24 11:16 Pulse 84 08/11/24 11:16 Resp 18 08/11/24 11:16 BP 126/68 08/11/24 11:16 Pulse Ox 96 08/11/24 11:16 Oxygen Delivery Method Room Air 08/11/24 11:16 BMI result Body Mass Index 24.4 Tobacco/Smoking Status: Tobacco use Status Tobacco use date assessed 08/11/24 08/11/24 11:19 Patient Tobacco Use Status Never used Tobacco 08/11/24 11:19 e-Cigarette/Vaping Use Never Used 08/11/24 11:19 PHQ-9: PHQ-9 Score PHQ-9: Total score 2 08/11/24 11:19 Depression Screening Interpretation: Negative Thrive Assessment: Date of Thrive Assessment Date Thrive assessed 08/11/24 08/11/24 11:19 Currently or been in a relationship where the following occur: I choose not to answer Const General: no acute distress HENMT Face and sinus: Yes normal facial exam Eyes General: appearance normal, both eyes and all related structures Neck Neck: Yes supple Resp Effort & Inspection: normal respiratory effort Auscultation: clear to auscultation bilaterally Cardio Rhythm: regular rhythm Heart sounds: S1 normal heart sound present and S2 normal heart sound present GI Inspection: Yes normal to inspection Palpation (GI): Soft to palpation Percussion: Yes normal to percussion Auscultation: normal bowel sounds External Female Exam: normal appearance of the urethra Speculum Exam - Vagina: vagina atrophic Results AMB Urinalysis, Automated UA Leukoctes 0 Aaron/uL Last Edit by DAMIEN Drew on 08/11/24 11:57 UA Nitrite Negative Last Edit by Briana Beverly Danielle on 08/11/24 11:57 UA Urobilinogen 0.2 mg/dL Last Edit by Briana Beverly Danielle on 08/11/24 11: 57 UA Protein 0 mg/dL Last Edit by DAMIEN Drew on 08/11/24 11:57 UA pH 6.0 Last Edit by DAMIEN Drew on 08/11/24 11:57 UA Blood 10 Xiang/uL Last Edit by Briana Beverly Danielle on 08/11/24 11:57 UA Specific [place] 1.015 Last Edit by DAMIEN Drew on 08/11/24 11 :57 UA Ketone Negative Last Edit by Briana Beverly Danielle on 08/11/24 11:57 UA Bilirubin 0 mg/dL Last Edit by DAMIEN Drew on 08/11/24 11:57 UA Glucose 0 mg/dL Last Edit by Briana Beverly Danielle on 08/11/24 11:57 Results Reviewed Results Reviewed: Laboratory Last Values Urine pH (Auto) 6.0 08/11/24 11:50 Specific [place] (Auto) 1.015 08/11/24 11:50 Urine Protein (Auto) 0 mg/dL 08/11/24 11:50 Glucose (UA)(Auto) 0 mg/dL 08/11/24 11:50 Urine Ketones (Auto) Negative 08/11/24 11:50 Urine Blood (Auto) 10 Xiang/uL 08/11/24 11:50 Urine Nitrite (Auto) Negative 08/11/24 11:50 Urine Bilirubin (Auto) 0 mg/dL 08/11/24 11:50 Urine Urobilinogen (Auto) 0.2 mg/dL 08/11/24 11:50 Leukocyte Esterase (Auto) 0 Aaron/uL 08/11/24 11:50 Coding Level of Care Code Est Pt Level 4 (99655) Diagnoses Urinary retention R33.9 Atrophic vaginitis N95.2 HTN (hypertension) I10 Additional Codes ABHIJIT-7 Assessment Billing - ABHIJIT-7 Assessment Tool: ABHIJIT-7 Assessment 55239 ([id number]) PHQ-9 - 13432 - PHQ-9 Billing: Yes ([id number]) Assessment & Plan Assessment & Plan (1) Urinary retention: Code(s): R33.9 - Retention of urine, unspecified Category: Medical Plan: Obtain bladder ultrasound to evaluate for urinary retention (2) Atrophic vaginitis: Code(s): N95.2 - Postmenopausal atrophic vaginitis Category: Medical Plan: Try estradiol vaginal cream for 2 months. (3) HTN (hypertension): Code(s): I10 - Essential (primary) hypertension Category: Medical Plan: Continue Lisinopril Orders: Orders AMB Urinalysis Automated Today Z13.9 - Encounter for screening, unspecified UA CC w/rflx Micro + Cult Today R10.9 - Unspecified abdominal pain, R31.9 - Hematuria, unspecified US bladder Today R33.9 - Retention of urine, unspecified Medications: New estradiol 0.01%(0.1mg/gram) 1 g vaginal 3XW 42.5 grams 4RF
--- OUTSIDE RECORDS SUMMARY | 2024-08-11 13:16 | XMS_ITS | Clinical Summary ---
[facility] it Address [id number] [place] [id number] Care Team Providers Care Billet Cutter Name Role Phone Ruiz Kovacs DO Primary Care Provider [phone] Surgical History Surgery Date Site/Laterality Comments CHOLECYSTECTOMY PROCEDURE: HISTORICAL CHOLECYSTECTOMY OTHER SURGICAL HISTORY PROCEDURE: [place] UNLISTED PROCEDURE VASCULAR SURGERY; COMMENT: left leg [...] age to complete this topic Care Teams Billet Cutter Relationship Specialty Start Date End Date Ruiz Kovacs DO PCP - General Internal Medicine 05/10/21
== END 2024-08-11 12:56 | disposition home or self-care (01) ==
LOC: HO.HMCC 11:08
PROVIDERS: PCP Internal Medicine; Visit Provider Internal Medicine
DX: R33.9 Retention of urine, unspecified (principal); N95.2 Postmenopausal atrophic vaginitis; I10 Essential (primary) hypertension; Z13.9 Encounter for screening, unspecified

== ENCOUNTER 2024-08-11 11:08 | Outpatient (REF) | payer OTHER, SELFPAY ==
[2024-08-11 15:22] LABS: Appearance Urine Clear; Color Urine Yellow; Glucose Urine UA 100 mg/dL (Negative); Leukocyte Esterase Urine Negative (Negative); Nitrite Urine Negative (Negative); PH 6.5 (5.0-9.0); Urine Blood Negative (Negative); Urine Ketones Negative (Negative); Urine Protein Negative (Neg-Trace)
== END 2024-08-11 11:09 | disposition home or self-care (01) ==
LOC: HO.LNP 11:08
PROVIDERS: PCP Internal Medicine; Visit Provider Internal Medicine
DX: R33.9 Retention of urine, unspecified (principal); N95.2 Postmenopausal atrophic vaginitis; I10 Essential (primary) hypertension; R10.9 Unspecified abdominal pain; R31.9 Hematuria, unspecified
CPT/HCPCS: 81003; 96127; 99212

== ENCOUNTER 2024-08-25 13:44 | Outpatient (REF) | payer OTHER, SELFPAY ==
--- NOTE | ~2024-08-25 | US_ITS ---
CLINICAL HISTORY: R33.9 - Retention of urine, unspecified US Urinary Bladder Comparison: None Findings: The urinary bladder is unremarkable. Prevoid volume: 129 mLPostvoid volume: 1.5 mL Ureteral jets are not visualized bilaterally. IMPRESSION: Normal urinary bladder This document has been electronically signed by: Mason Schulz MD on 08/26/2024 09:01:40
--- OUTSIDE RECORDS SUMMARY | 2024-08-25 15:05 | XMS_ITS | Clinical Summary ---
[facility] Organization [facility] Address [id number] [place] [phone] Care Team Providers Care [employer] Teacher Name Role Phone Ruiz Kovacs DO Primary Care Provider [phone] Surgical History Surgery Date Site/Laterality Comments CHOLECYSTECTOMY PROCEDURE: HISTORICAL CHOLECYSTECTOMY OTHER SURGICAL HISTORY PROCEDURE: [place] UNLISTED PROCEDURE VASCULAR SURGERY; COMMENT: left leg [...] Vaccines (1 of 2) 1988 RSV Immunization Adult Patie nts (1 - 1-dose 75+ series) 2013 Cholesterol [...] age to complete this topic Care Teams [employer] Home [employer] Teacher Relationship Specialty Start Date End Date Ruiz Kovacs DO PCP - General Internal Medicine 05/10/21
== END 2024-08-25 13:45 | disposition home or self-care (01) ==
LOC: HO.HMGCX 13:44
PROVIDERS: PCP Internal Medicine; Visit Provider Internal Medicine
DX: R33.9 Retention of urine, unspecified (principal)
CPT/HCPCS: 76857

== ENCOUNTER → 2024-08-25 13:49 | Outpatient (BNV) | payer OTHER, SELFPAY | PROVIDERS: PCP Internal Medicine; Visit Provider Specialist | DX: R33.9 Retention of urine, unspecified (principal) | CPT/HCPCS: 76857 ==